=== PATIENT | female | born 1960 | race Caucasian/White ===

== ENCOUNTER 2019-07-06 08:35 | Day surgery (SDC) | payer OTHER ==
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
[~2019-07-06 08:35] MED LIST: ACETAMINOPHEN 1,000 MG/100 ML BTL IVPB ONE; CLINDAMYCIN 600MG/50ML PREMIX 600 MG/50 ML BAG IVPB ONE; FAMOTIDINE 20MG TABLET PO ONE; MECLIZINE 25 MG TABLET PO ONE; METOCLOPRAMIDE 10 MG TABLET PO ONE
[2019-07-06] MEDS ORDERED: LIDOCAINE 2% MDV (20MG/ML) 20ML VIAL IV ONE (08:36)
[2019-07-06] MEDS ORDERED: PROPOFOL 10 MG/ML VIAL IV ONE (08:36)
[2019-07-06] MEDS ORDERED: 0.9 % SODIUM CHLORIDE 10 ML VIAL IVP ONE (08:36)
[2019-07-06] MEDS ORDERED: *PACU ONLY* KETAMINE HCL 10 MG/ML (20ML) VIAL IV ONE (08:36)
[2019-07-06] MEDS ORDERED: MIDAZOLAM HCL 2MG/2ML VIAL IV ONE (08:36)
[2019-07-06] MEDS ORDERED: GLYCOPYRROLATE 0.2 MG/ML ML IV ONE (08:36)
[2019-07-06] MEDS ORDERED: SUFENTANIL CITRATE 50 MCG/ML AMPUL IV ONE (08:36)
[2019-07-06] MEDS ORDERED: PHENYLEPHRINE HCL 10 MG/ML VIAL IVP ONE (08:36)
[2019-07-06] MEDS ORDERED: RINGERS SOLUTION,LACTATED 1,000 ML IV ONE (09:35)
[2019-07-06] MEDS ORDERED: LIDOCAINE 1% W/EPI 1:100,000 MDV 20 ML VIAL SQ ONE (12:01)
[2019-07-06] MEDS ORDERED: BUPIVACAINE 0.5% W/EPI MPF 30 ML VIAL SQ ONE (12:01)
[2019-07-06] MEDS ORDERED: OXYCODONE/APAP 10MG-325MG TABLET PO ONE (13:44)
--- NOTE | 2019-07-11 08:10 | Operative Note ---
DATE OF SURGERY: 07/06/2019 PREOPERATIVE DIAGNOSIS: Cervical radiculopathy, ICD10 code M54.12. OPERATION: 1. Fluoroscopic-guided epidural access left T1-2, placement of spinal cord stimulator lead 1, a Nevro Octipolar 8 electrodes, lead advanced left of midline upper endplate C2. 2. Fluoroscopic-guided epidural access left T2-3, placement of spinal cord stimulator lead 2, a Nevro Octipolar 8 electrodes, positioned midline slightly right of lead 1 upper endplate offset lead 1 at C2. 3. Incision, subcutaneous dissection, and anchoring lead 1 and lead 2 to supraspinous fascia using Nevro locking anchor. 4. Incision, subcutaneous dissection, and creation of subcutaneous pouch at left posterior gluteal margin for placement of generator, a Nevro rechargeable programmable internal pulse generator. 5. Tunneling of lead 1 and lead 2 into generator pouch, each lead interfaced to generator. 6. Placement of generator to pouch, placement of leads into respective pouch, closure of both incisions using Stratafix suture 2-0 fascia, 3-0 skin. Dermabond closure. 7. Complex recovery room programming internal generator home use 2 stimulators 20 minutes. SURGEON: Sp Vazquez DO ANESTHESIA: Local with sedation. ANESTHESIA PROVIDER: Manoj Corona INDICATION: This patient presents with a history of an intractable left-sided cervical radiculopathy. Due to the failure of all therapies, a spinal cord stimulator trial was conducted with Dr. Geraldo Butt with 75% to 80% pain control minimum. The patient requested a permanent implant. At that point, she had been referred to another facility which failed at the implant. She has been referred to this facility for implanted cervical spinal cord stimulator. PROCEDURE: Intravenous line, vital sign monitoring, IV sedation. Prepped and draped with sterile technique. Patient positioned prone. Sterile prep, sterile technique. Under imaging, the thoracic epidural interspace at T1-2 and 2-3 were both marked, skin infiltrated. Using standard epidural needles with loss of resistance, the space was accessed at each level. Atraumatic. No blood, no CSF. At T1-2, spinal cord stimulator lead 1, a Nevro Octipolar 8 electrodes, was advanced and positioned slightly left of midline upper electrode at C2. With the access at 2-3, spinal cord stimulator lead 2, also a Nevro Octipolar with 8 electrodes, advanced to the midline slightly right of lead 1 offset 1 electrode. Complex programming not performed. The skin above and below each needle was infiltrated. Incision was made and subcutaneous dissection was conducted down to the deep supraspinous fascia. The needles were removed and then each lead was anchored to the supraspinous fascia with a Nevro locking anchor. At the left posterior gluteal margin, which was a site picked by the patient for the generator, skin infiltrated, incision made, and subcutaneous dissection was conducted to form a pouch of suitable size and depth for the generator, a Nevro programmable rechargeable. A tunneling tool was then used to carry each of the 2 leads into the generator pouch, and each lead was interfaced to the generator. Antibiotic irrigation and Bovie for hemostasis. The generator was placed into the pouch. Both leads placed into their own pouch, and then the incisions were closed using Stratafix suture, 2-0 fascia, and 3-0 skin. Dermabond closure was then used to approximate the edges of both wounds. The patient was then transported to recovery room stable. Awake and alert. At that particular point, there were no unusual side effects. When fully awake and alert, [facility] and then the patient was prepared for discharge. DISCHARGE INSTRUCTIONS: 1. The sites to remain clean and dry. No showering or bathing in any way that would disrupt the dressings. Although the Dermabond will allow showering, she is not to sit in water. 2. Standard medications resumed including the antibiotic Levaquin. She will take 500 mg once a day for 14 days. 3. The office is to contact the patient in 12-24 hours to set up a time in the next 7-10 days for us to evaluate the sites. Until then, although she can shower, she is to keep her activities low. Limit bend, lift, push, pull. She will be seen in the office in 7-10 days and cleared for further activities. All other instructions provided, numbers to contact if problems. The antibiotic called by the hospital. ERICK
== END 2019-07-06 14:03 | disposition home or self-care (01) ==
LOC: SUR 08:35
PROVIDERS: ATTEND Pain Medicine Interventional Pain Medicine
DX: M54.12 Radiculopathy, cervical region (principal); I10 Essential (primary) hypertension; E78.00 Pure hypercholesterolemia, unspecified; E11.9 Type 2 diabetes mellitus without complications; I50.9 Heart failure, unspecified; R01.1 Cardiac murmur, unspecified; G47.33 Obstructive sleep apnea (adult) (pediatric); Z87.442 Personal history of urinary calculi
CPT/HCPCS: 63650; 63685; 01936; 95972; 36416; 82948; C1778; C1822; C1787; J2370; J7120